=== PATIENT | female | born 1990 | race Asian ===

== ENCOUNTER 2018-09-15 01:15 | Emergency (ER) | payer OTHER ==
--- NOTE | 2018-09-15 01:33 | EDPHY ---
H & P Stated Complaint: generalized rash, itchy Time Seen by Provider: 09/15/18 01:33 HPI/ROS: HPI CHIEF COMPLAINT: Itchy rash x1 week. HISTORY OF PRESENT ILLNESS: 27-year-old female otherwise healthy no significant medical history no new medications or foods, presents to the emergency room with pruritus and itchy scan in a rash x1 week. It is worse around her waist band on her back and on the dorsum of her hands. She has been taking Claritin with little relief. She could not sleep tonight as the itchiness got worse. She denies trouble breathing trouble swallowing, denies fever, denies vomiting. Past Medical History: Denies medical Past Surgical History: Pre denies surgical history Social History: Denies Family History: Denies ROS REVIEW OF SYSTEMS: 10 Systems were reviewed and negative with the exception of the elements mentioned in the history of present illness. Exam Constitutional triage nursing summary reviewed, vital signs reviewed, awake/ alert. Eyes normal conjunctivae and sclera, EOMI, PERRLA. HENT normal inspection, atraumatic, moist mucus membranes, no epistaxis, neck supple/ no meningismus, no raccoon eyes. Respiratory clear to auscultation bilaterally, normal breath sounds, no respiratory distress, no wheezing. Cardiovascular rate normal, regular rhythm, no murmur, no edema, distal pulses normal. Gastrointestinal soft, non-tender, no rebound, no guarding, normal bowel sounds, no distension, no pulsatile mass. Genitourinary no CVA tenderness. Musculoskeletal no midline vertebral tenderness, full range of motion, no calf swelling, no tenderness of extremities, no meningismus, good pulses, neurovascularly intact. Skin diffuse sandpaper rash worse around the waistband along her back on the dorsum of her hands closed her webspace of the digits. Appearing to be scabies Neurologic awake, alert and oriented x 3, AAOx3, moves all 4 extremities equally, motor intact, sensory intact, CN II-XII intact, normal cerebellar, normal vision, normal speech. Psychiatric normal mood/affect. Heme/Lymph/Immune no lymphadenopathy. Differential Diagnosis: Includes but is not limited to in a particular order contact dermatitis, allergic reaction, scabies. Medical Decision Making: Plan for this patient Benadryl, Pepcid, Decadron and permethrin. Will re- evaluate. Re-evaluation: 0255: Patient asking for discharge. Patient re-evaluated this time resting comfortably no acute distress. Rash is not progressed. No trouble swallowing or trouble breathing. The rash appears to most likely be scabies. Will place on skin permethrin. Instructions on permethrin. Return precautions discussed Return if worsening symptoms questions or concerns she is comfortable this. Source: Patient - Personal History LMP (Females 10-55): 22-28 Days Ago - Medical/Surgical History Hx Asthma: No Hx Chronic Respiratory Disease: No Hx Diabetes: No Hx Cardiac Disease: No Hx Renal Disease: No Hx Cirrhosis: No Hx Alcoholism: No Hx HIV/AIDS: No Hx Splenectomy or Spleen Trauma: No Other PMH: denies - Social History Smoking Status: Never smoked Constitutional: Initial Vital Signs Temperature (C) 36.4 C 09/15/18 01:18 Heart Rate 88 09/15/18 01:18 Respiratory Rate 18 09/15/18 01:18 Blood Pressure 118/90 H 09/15/18 01:18 O2 Sat (%) 97 09/15/18 01:18 O2 Delivery Mode Room Air Allergies/Adverse Reactions: [email or web address] Allergy (Verified 09/15/18 01:20) Home Medications: Medication Instructions Recorded Claritin 09/15/18 Medical Decision Making - Data Points Medications Given: Discontinued Medications Dexamethasone (Decadron) 8 mg PO EDNOW ONE Stop: 09/15/18 01:39 Last Admin: 09/15/18 01:52 Dose: 8 mg Diphenhydramine HCl (Benadryl) 50 mg PO EDNOW ONE Stop: 09/15/18 01:39 Last Admin: 09/15/18 01:52 Dose: 50 mg Famotidine (Pepcid) 20 mg PO EDNOW ONE Stop: 09/15/18 01:39 Last Admin: 09/15/18 01:52 Dose: 20 mg Permethrin (Elimite 5%) 1 nara TP EDNOW ONE Stop: 09/15/18 01:39 Last Admin: 09/15/18 02:10 Dose: 1 nara Departure - Departure Disposition: Home, Routine, Self-Care Clinical Impression: Scabies Allergic reaction Qualifiers: Encounter type: initial encounter Qualified Code(s): T78.40XA - Allergy, unspecified, initial encounter Condition: Good Instructions: Urticaria (ED), Scabies (ED) Additional Instructions: 1. Return if worsening rash questions or concerns. Referrals: NONE *PRIMARY CARE P,. [Primary Care Provider] - As per Instructions
[2018-09-15] MEDS ORDERED: DEXAMETHASONE 4 MG TAB PO ONE (01:38)
[2018-09-15] MEDS ORDERED: PERMETHRIN 5% 60 GM CREAM TP ONE (01:38)
[2018-09-15] MEDS ORDERED: diphenhydrAMINE 25 MG CAP PO ONE (01:38)
[2018-09-15] MEDS ORDERED: FAMOTIDINE 20 MG TAB PO ONE (01:38)
[2018-09-15 02:19] VITALS: BP 136/83
== END 2018-09-15 03:15 | disposition home or self-care (01) ==
DX: B86 Scabies (principal); L50.9 Urticaria, unspecified